=== PATIENT | female | born 1935 | race Caucasian/White ===

== ENCOUNTER 2019-09-22 07:35 | Emergency (ER) | payer BC, MEDICARE ==
[~2019-09-22] VITALS: Ht 152.4 cm; Wt 54.9 kg
[2019-09-22] MEDS ORDERED: METHYLPREDNISOLO4 M1 PO (08:13)
== END 2019-09-22 08:25 | disposition home or self-care (01) ==
LOC: ED 07:35
DX: M54.31 Sciatica, right side (principal)
CPT/HCPCS: 99283

== ENCOUNTER 2020-01-29 21:09 | Emergency (ER) | payer BC, MEDICARE ==
[~2020-01-29] VITALS: Ht 162.6 cm; Wt 54.9 kg
[~2020-01-29 21:09] MED LIST: METHYLPREDNISOLO4 M1 PO
== END 2020-01-29 22:18 | disposition home or self-care (01) ==
LOC: ED 21:09
DX: S70.01XA Contusion of right hip, initial encounter (principal); W01.0XXA Fall on same level from slipping, tripping and stumbling without subsequent striking against object, initial encounter
CPT/HCPCS: 73502; 99283-25

== ENCOUNTER 2020-12-25 07:06 | Emergency (ER) | payer MEDICARE ==
[~2020-12-25] VITALS: Ht 162.6 cm; Wt 54.9 kg
[2020-12-25] MEDS ORDERED: CEPHALEXIN500 MG PO (09:45)
== END 2020-12-25 09:57 | disposition home or self-care (01) ==
LOC: ED 07:06
DX: N39.0 Urinary tract infection, site not specified (principal)
CPT/HCPCS: 74177; 80053; 81001; 83690; 85025; 87077; 87088; 87186; 99284-25; Q9967